=== PATIENT | female | born 1965 | race African-American/Black ===

== ENCOUNTER 2018-11-04 16:00 | Outpatient (CLI) | payer BC | END 2018-11-04 16:01 | disposition home or self-care (01) | LOC: BICMAMMO 16:00 | PROVIDERS: ATTEND Internal Medicine | DX: Z12.31 Encounter for screening mammogram for malignant neoplasm of breast (principal); Z80.3 Family history of malignant neoplasm of breast | CPT/HCPCS: 77063; 77067 ==

== ENCOUNTER 2020-02-10 12:35 | Outpatient (CLI) | payer BC ==
--- NOTE | 2020-02-10 13:05 | RAD ---
Exam: Lumbar spine 2 views COMPARISON: 02/23/2014, 04/23/2009 HISTORY: Back pain. Follow-up mild scoliosis FINDINGS: 5 lumbar type vertebra. Lumbar spine vertebral body height is maintained. No fracture. No s pondylolisthesis. No spondylolysis. No significant scoliotic curvature of the lumbar spine. IMPRESSION: No acute abnormality with regards the lumbar spine. No significant scoliotic curvature.
--- NOTE | 2020-02-10 14:05 | BD ---
BONE DENSITOMETRY USING DEXA: HISTORY: A 54-year-old female with screening for osteoporosis. FINDINGS: Lumbar Spine: BMD (g/cm2) L1 0.700 T-Score: -2.6 Z-Score: -2.5 L2 0.732 T-Score: -2.7 Z-Score: -2.6 L3 0.777 T-Score: -2.8 Z-Score: -2.7 L4 0.681 T-Score: -0.5 Z-Score: -3.3 L1-L4 0.724 T-Score: -2.9 Z-Score: -2.8 Femoral Neck: 0.739 T-Score: -1.0 Z-Score: -0.8 Total Femur: 0.739 T-Score: -1.7 Z-Score: -1.4 Impression: Osteoporosis. POS: [facility]
--- NOTE | 2020-02-10 15:20 | MMO ---
Bilateral MAMMO Bilat Screen [facility]. CLINICAL HISTORY: Patient is 54 years old and is seen for screening. The patient has the following family history of breast cancer: maternal aunt, malignant (generic). The patient has no personal history of cancer. VIEWS: The views performed were: bilateral craniocaudal with tomosynthesis and bilateral mediolateral oblique with tomosynthesis. FILMS COMPARED: The present examination has been compared to prior imaging studies performed at [facility] on 11/04/2018, and at [facility] on 07/07/2010, 02/27/2012 and 10/19/2016. This study has been interpreted with the assistance of computer-aided detection. MAMMOGRAM FINDINGS: There are scattered fibroglandular densities. There are no suspicious masses, suspicious calcifications, or new areas of architectural distortion. IMPRESSION: THERE IS NO MAMMOGRAPHIC EVIDENCE OF MALIGNANCY. A ROUTINE FOLLOW-UP MAMMOGRAM IN 1 YEAR IS RECOMMENDED. THE RESULTS OF THIS EXAM WERE SENT TO THE PATIENT. ACR BI-RADS Category 1 - Negative MAMMOGRAPHY NOTE: 1. A negative mammogram report should not delay a biopsy if a dominant of clinically suspicious mass is present. 2. Approximately 10% to 15% of breast cancers are not detected by mammography. 3. Adenosis and dense breasts may obscure an underlying neoplasm. Reported by: DARWIN ENRIQUEZ MD Electonically Signed: [id number]
== END 2020-02-10 12:36 | disposition home or self-care (01) ==
LOC: BICMAMMO 12:35
PROVIDERS: ATTEND Internal Medicine
DX: Z12.31 Encounter for screening mammogram for malignant neoplasm of breast (principal); Z13.820 Encounter for screening for osteoporosis; M54.9 Dorsalgia, unspecified; M81.0 Age-related osteoporosis without current pathological fracture; Z78.0 Asymptomatic menopausal state; Z80.3 Family history of malignant neoplasm of breast
CPT/HCPCS: 72100; 77063; 77067; 77080

== ENCOUNTER 2020-02-19 09:32 | Outpatient (CLI) | payer BC ==
--- NOTE | 2020-02-19 12:16 | RAD ---
SACRUM AND COCCYX 3 VIEWS: HISTORY: Low back pain. FINDINGS: SI joints appear symmetric. 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 This anomalous articulation shows sclerosis and irregularity along the a rticular surfaces. Sacrum and coccyx otherwise unremarkable. L3, L4, and L5 vertebrae are imaged on the lateral view an d show normal height and alignment. The disk spaces are preserved. 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 POS: [facility]
== END 2020-02-19 09:33 | disposition home or self-care (01) ==
LOC: BICRAD 09:32
PROVIDERS: ATTEND Internal Medicine
DX: M54.5 Low back pain (principal); Q76.49 Other congenital malformations of spine, not associated with scoliosis
CPT/HCPCS: 72220

== ENCOUNTER 2020-04-01 15:03 | Outpatient (CLI) | payer BC ==
--- NOTE | 2020-04-01 15:37 | RAD ---
Exam: 3 views thoracic spine HISTORY: Age-related osteoporosis FINDINGS: AP, lateral and swimmer's view demonstrate 12 intact thoracic vertebra. Recommend right-angelica ed rib at T12. Thoracic spine vertebral body heights are maintained and there is no fracture. There is no significant degenerative change or osteophyte formation. No significant bony mineralization IMPRESSION: No radiographic evidence of significant degenerative change
== END 2020-04-01 15:04 | disposition home or self-care (01) ==
LOC: BICRAD 15:03
PROVIDERS: ATTEND Internal Medicine Rheumatology
DX: M81.0 Age-related osteoporosis without current pathological fracture (principal)
CPT/HCPCS: 36415; 72072; 81374; 82180; 83516; 83520; 83970; 86038; 86200; 86225; 86255; 86256

== ENCOUNTER 2021-05-31 08:19 | Outpatient (CLI) | payer BC | END 2021-05-31 08:20 | disposition home or self-care (01) | LOC: BICRAD 08:19 | PROVIDERS: ATTEND Internal Medicine Rheumatology | DX: M25.532 Pain in left wrist (principal) ==

== ENCOUNTER 2022-02-09 09:36 | Outpatient (CLI) | payer BC | END 2022-02-09 09:37 | disposition home or self-care (01) | LOC: BICMAMMO 09:36 | PROVIDERS: ATTEND Internal Medicine Rheumatology | DX: Z12.31 Encounter for screening mammogram for malignant neoplasm of breast (principal); M81.0 Age-related osteoporosis without current pathological fracture; Z80.3 Family history of malignant neoplasm of breast | CPT/HCPCS: 77063; 77067; 77080 ==

== ENCOUNTER 2022-11-06 09:10 | Outpatient (CLI) | payer BC | END 2022-11-06 09:11 | disposition home or self-care (01) | LOC: BICRAD 09:10 | PROVIDERS: ATTEND Internal Medicine Rheumatology | DX: M25.562 Pain in left knee (principal); M17.12 Unilateral primary osteoarthritis, left knee; Z98.890 Other specified postprocedural states ==

== ENCOUNTER 2023-01-11 09:08 | Outpatient (CLI) | payer BC, MEDICARE | END 2023-01-11 09:09 | disposition home or self-care (01) | LOC: BICRAD 09:08 | PROVIDERS: ATTEND Internal Medicine | DX: R60.0 Localized edema (principal) ==

== ENCOUNTER 2023-05-29 18:00 | Outpatient (CLI) | payer BC, MEDICARE | END 2023-05-29 18:01 | disposition home or self-care (01) | LOC: SLEEPLAB 18:00 | PROVIDERS: ATTEND Internal Medicine Critical Care Medicine | DX: G47.33 Obstructive sleep apnea (adult) (pediatric) (principal); R53.83 Other fatigue; R06.83 Snoring | CPT/HCPCS: 95800 ==

== ENCOUNTER 2023-06-14 11:01 | Outpatient (CLI) | payer BC, MEDICARE | END 2023-06-14 11:02 | disposition home or self-care (01) | LOC: BICMAMMO 11:01 | PROVIDERS: ATTEND Internal Medicine | DX: Z12.31 Encounter for screening mammogram for malignant neoplasm of breast (principal); Z80.3 Family history of malignant neoplasm of breast | CPT/HCPCS: 77063; 77067 ==

== ENCOUNTER 2024-04-24 14:00 | Outpatient (CLI) | payer BC, MEDICARE | END 2024-04-24 14:01 | disposition home or self-care (01) | LOC: BICMAMMO 14:00 | PROVIDERS: ATTEND Internal Medicine Rheumatology | DX: M81.0 Age-related osteoporosis without current pathological fracture (principal); M85.852 Other specified disorders of bone density and structure, left thigh | CPT/HCPCS: 77080 ==